=== PATIENT | female | born 1960 | race Native Hawaiian/Other Pacific Islander ===

== ENCOUNTER → 2023-03-14 | Outpatient (CLI) | payer OTHER ==
[~2023-03-14] MED LIST: FLONASE NASAL S16 GM NS; GLUCOPHAGE1000 MG PO; JANUVIA 100MG100 MG PO; LANTUS100 U/ML SC; LIPITOR 10MG10 MG PO; MIRALAX PA17 GM/Dose PO; NEXIUM 40MG40 MG PO; PRINZIDE 12.5 M1 TA1 PO; SINGULAIR 110 MG/TAB PO; VESICARE 5MG5 MG PO; ZITHROMAX 250M250 MG PO; ZYRTEC-D 5 MG-11 TER PO
== END ==
LOC: MHCPAIN 10:08
DX: M48.061 Spinal stenosis, lumbar region without neurogenic claudication (principal); M54.50 Low back pain, unspecified; E11.40 Type 2 diabetes mellitus with diabetic neuropathy, unspecified
CPT/HCPCS: G0463